=== PATIENT | male | born 1990 | race Caucasian/White ===

== ENCOUNTER 2020-07-30 06:55 | Day surgery (SDC) | payer MEDICAID, SELFPAY ==
[2020-07-30 07:06] VITALS: BP 131/89; PULSE 89; RESP 18; TEMP 36.3; O2SAT 98; BMI 24.0
--- NOTE | 2020-07-30 07:27 | HO.ANESPROP2 ---
[facility] Social History Social History (Updated 07/30/20 @ 07:30 by Josh Corbett) Alcohol intake: former Smoking Status: Never smoker Use of substances other than those prescribed or required for medical reasons: No Substance Use Type: Marijuana Substance Use Type Other:: Typically every other night Advance Directives: No Meds Allergies Allergy/AdvReac Type Severity Reaction Status Date / Time tree and shrub pollen [TREES] Allergy Unknown RASH FROM Verified 07/30/20 06:46 PINE TREES metoclopramide [Reglan] AdvReac Unknown Anxiety Verified 04/25/20 00:00 From REGLAN Allergy Intermediate DYSPHORIA Uncoded 05/30/20 16:02 SEAFOOD Allergy Unknown VOMITING Uncoded 05/30/20 16:02 Home Medications Medication Instructions Recorded Confirmed Type Carafate 07/30/20 History ondansetron HCl [Zofran] 07/30/20 History sertraline 100 mg PO DAILY 07/30/20 07/30/20 History Exam Exam Date and Time: July 30, 2020 0727 Height,Weight and Vital Signs: Height 5 ft 9 in Weight 73.936 kg Last Vital Signs Temp 97.3 F 07/30/20 07:06 Pulse 89 07/30/20 07:06 Resp 18 07/30/20 07:06 BP 131/89 07/30/20 07:06 Pulse Ox 98 07/30/20 07:06 Airway Mallampati Class: I TM Dist: >3cm Neck ROM: Full Heart: RRR Assessment and Plan Assessment Anesthesia Assessment: Anesthesia Plan Discussed Final Anesthetic Review NPO: Yes ASA Class: II Anesthetic Plan Anesthetic Plan: MAC: Disposition: Standard PACU
[2020-07-30] MEDS: Lactated Ringers 1,000 ML 100 ML IVCONT (07:55)
--- NOTE | 2020-07-30 08:11 | MHC.SHP ---
Pre-Procedural Eval Section B Chief Complaint: Epigastric Pain Relevant Family History (Specify if Yes): No Relevant Social History: Other (specify) (THC) Medical History: No relevant PMH History of Previous Operations: No relevant previous surgery Allergies: Allergies Allergy/AdvReac Type Severity Reaction Status Date / Time tree and shrub pollen [TREES] Allergy Unknown RASH FROM Verified 07/30/20 06:46 PINE TREES metoclopramide [Reglan] AdvReac Unknown Anxiety Verified 04/25/20 00:00 From REGLAN Allergy Intermediate DYSPHORIA Uncoded 05/30/20 16:02 SEAFOOD Allergy Unknown VOMITING Uncoded 05/30/20 16:02 Review of Systems Sugical H&P ROS: Negative: Constitution, Cardiovascular, Respiratory, Neurological, Psychiatric, Hem-Onc, Allergic/Immunologic, Gastrointestinal, Genitourinary, Musculoskeletal, Integumentary, Endocrine and Eyes/Ears/Nose/Throat Exam Surgical H&P Exam: Normal: HEENT, Normal: Heart, Normal: Lungs, Normal: Extremities, Normal: Abdomen, Normal: Skin and Normal: Neurological Plan Diagnosis/Plan: Unchanged Patient has been examined and remains a candidate for the planned procedure
--- NOTE | 2020-07-30 08:32 | PM.OP ---
Brief Operative Note Date of Service: 07/30/20 Post-op diagnosis: same Procedure: see op note Surgeon: April Baca MD Anesthesia: MAC Estimated blood loss (mL): 0 Condition: stable Disposition: PACU
--- NOTE | 2020-07-30 08:32 | W.PM.OPN ---
Operative Note Operative Note Date of Service: 07/30/20 Narrative: Procedure Description: EGD FLEXIBLE TRANSORAL UPPER GASTROINTESTINAL ENDOSCOPY UPPER ENDOSCOPY Consent: Indications for the procedure and potential complications of bleeding, perforation, reaction to medications and missed diagnosis were discussed with the patient and informed consent was obtained. Instrument: Olympus GIF H 190 J mid size upper endoscope Monitoring: Vital signs and clinical assessment, continuous EKG monitoring, Pulse oximetry, Carbon Dioxide monitoring and blood pressure monitoring were done throughout the procedure. Procedure: The patient was placed in the left lateral decubitis position and pre-procedure medications were administered and a bite block was placed. The endoscope was inserted into the mouth and advanced under direct vision to the third part of duodenum. A careful inspection was made as the upper endoscope was withdrawn including a retroflexed examination of the proximal stomach; Findings and interventions are described below. 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 Esophageal inlet patch noted in proximal esophagus Stomach: Patchy gastric erythema. Biopsies were obtained. Grade 2 flap valve on retroflexed examination of the cardia. Duodenum: Normal bulb and descending duodenum, bx taken Intervention: Biopsies as noted above Impression/Findings: gastritis esophageal inlet patch PLAN: await bx if neg then consider further w/u for symptoms, did describe early satiety, can consider GES, CT enterogram, or colonoscopy as he also endorses altered bowel habits.
[2020-07-30 08:38] VITALS: BP 107/56; PULSE 79; RESP 16; TEMP 36.6; O2SAT 97
[2020-07-30 08:53] VITALS: BP 113/63; PULSE 74; RESP 16; TEMP 36.6; O2SAT 98
--- NOTE | 2020-07-30 09:23 | HO.POSTANES ---
Post Anesthesia Evaluation Post Anesthesia Evaluation Vital Signs: Vital Signs Temp Pulse Resp BP Pulse Ox 07/30/20 08:53 97.8 F 74 16 113/63 98 07/30/20 08:38 97.8 F 79 16 107/56 L 97 07/30/20 07:06 97.3 F 89 18 131/89 98 Anesthesia: Monitored Mental Status: Awake Nausea/Vomiting: None Hydration: Adequate Anesthesia-Related Issues: No Anes. Related Issues
== END 2020-07-30 09:15 | disposition home or self-care (01) ==
PROVIDERS: PCP Internal Medicine; Visit Provider Internal Medicine Gastroenterology
PROC: 0DJ08ZZ Inspection of Upper Intestinal Tract, Via Natural or Artificial Opening Endoscopic (ICD-10-PCS; CPT 43235; principal; 2020-07-30 07:50)
DX: K29.50 Unspecified chronic gastritis without bleeding (principal); Q39.8 Other congenital malformations of esophagus; K44.9 Diaphragmatic hernia without obstruction or gangrene; Z80.0 Family history of malignant neoplasm of digestive organs; Z88.8 Allergy status to other drugs, medicaments and biological substances; Z79.899 Other long term (current) drug therapy
CPT/HCPCS: 43239; 88305; 88342

== ENCOUNTER → 2020-08-20 13:19 | Outpatient (BNVA) | payer MEDICAID, SELFPAY | PROVIDERS: PCP Internal Medicine; Referring Provider Internal Medicine; Visit Provider Nurse Practitioner | DX: Z76.89 Persons encountering health services in other specified circumstances (principal) ==

== ENCOUNTER 2020-08-27 10:02 | Outpatient (REF) | payer MEDICAID, SELFPAY | END 2020-08-27 10:03 | disposition home or self-care (01) | LOC: HO.LAB 10:02 | PROVIDERS: Visit Provider Internal Medicine | DX: Z20.828 Contact with and (suspected) exposure to other viral communicable diseases (principal) | CPT/HCPCS: C9803; U0003 ==

== ENCOUNTER → 2020-08-29 09:06 | Outpatient (REF) | payer MEDICAID, SELFPAY ==
--- NOTE | 2020-08-29 09:11 | NM_ITS ---
EXAMINATION: BILIARY TRACT IMAGING STUDY WITH CCK CLINICAL INFORMATION: Epigastric pain.. COMPARISON: No previous biliary scan is available for comparison. The diagnostic CT scan of the abdomen and pelvis, dated 05/14/2020, is available for comparison.. TECHNIQUE: Serial gamma scintillation camera images were obtained over the abdomen for a total observation period of 91 minutes following the intravenous administration of 5 mCi Tc-99m Mebrofenin. FINDINGS: There is good concentration of activity in the liver by 5 minutes post injection. Biliary activity is visualized by 7 minutes. The gallbladder is well visualized by 10 minutes. Small bowel is well visualized by 25 minutes. At 60 minutes post radiopharmaceutical injection, a 30-minute infusion of 1.5 micrograms Sincalide was then begun and an additional 40 minutes of images were obtained. There is good emptying of the gallbladder. By the end of the study there is good clearance of activity from the liver and visualization of diffuse small bowel activity. The calculated gallbladder ejection fraction is 90% (normal gallbladder ejection fraction is greater than 35%). NM/NM hepatobiliary w pharm IMPRESSION: Visualization of the gallbladder is evidence of a patent cystic duct and strong evidence against the diagnosis of acute cholecystitis. The common bile duct is patent. Gallbladder emptying and ejection fraction are normal. Liver function appears normal.
== END ==
LOC: HO.NUCMED 09:06
PROVIDERS: Visit Provider Nurse Practitioner
DX: R10.13 Epigastric pain (principal); R11.2 Nausea with vomiting, unspecified
CPT/HCPCS: 78227; A9537; J2805

== ENCOUNTER → 2020-10-01 15:14 | Outpatient (BNVA) | payer MEDICAID, SELFPAY | PROVIDERS: PCP Internal Medicine; Visit Provider Nurse Practitioner ==

== ENCOUNTER 2020-11-01 16:39 | Outpatient (REF) | payer MEDICAID, SELFPAY ==
[2020-11-01 17:47] LABS: Alanine Aminotransferase 48 U/L (0-40); Albumin Level 4.8 g/dL (3.5-5.0); Alkaline Phosphatase 59 U/L (39-117); Aspartate Amino Transferase 31 U/L (5-37); Bilirubin Direct 0.2 mg/dL (0.0-0.5); Bilirubin Total 0.6 mg/dL (0.0-1.0)
[2020-11-05 13:08] LABS: Mitochondrial Antibodies NEGATIVE (NEGATIVE)
[2020-11-06 12:51] LABS: Smooth Muscle Antibody <20 U (<20)
== END 2020-11-01 16:40 | disposition home or self-care (01) ==
LOC: HO.LAB 16:39
PROVIDERS: Visit Provider Nurse Practitioner
DX: R79.89 Other specified abnormal findings of blood chemistry (principal); R10.13 Epigastric pain; R11.2 Nausea with vomiting, unspecified
CPT/HCPCS: 36415; 80076; 86255; 86256

== ENCOUNTER → 2020-11-20 15:52 | Outpatient (BNVA) | payer MEDICAID, SELFPAY | PROVIDERS: PCP Internal Medicine; Visit Provider Nurse Practitioner | DX: R19.7 Diarrhea, unspecified (principal); R79.89 Other specified abnormal findings of blood chemistry; K29.30 Chronic superficial gastritis without bleeding; R63.4 Abnormal weight loss; R11.2 Nausea with vomiting, unspecified; R10.13 Epigastric pain; K21.9 Gastro-esophageal reflux disease without esophagitis; Z79.899 Other long term (current) drug therapy | CPT/HCPCS: 99212; Q3014 ==

== ENCOUNTER → 2021-01-01 13:57 | Outpatient (BNVA) | payer MEDICAID, SELFPAY | PROVIDERS: PCP Internal Medicine; Visit Provider Nurse Practitioner ==

== ENCOUNTER 2021-12-06 12:02 | Emergency (ER) | payer MEDICAID, SELFPAY ==
--- NOTE | 2021-12-06 12:14 | ED.URI ---
HPI - URI/Sore Throat General Chief Complaint: Upper Respiratory Symptoms Stated Complaint: Strep throat Time Seen by Provider: 12/06/21 12:14 Source: patient Mode of arrival: ambulatory Limitations: no limitations History of Present Illness HPI Narrative: 31-year-old male presents to the ER with 6 days of URI symptoms. He states it started with sore throat, subjective fever and chills along with a dry cough, sweats and headache. He also has had body aches and just generally not felt well. He states the last 2 nights he has had episodes of vomiting. His labs episode of vomiting was at 02:00 today. He has no abdominal pain. And states he actually felt better when he got out of bed this morning. He went to call out of work and stated he needs to be seen and have a doctor's note to be excused from work. He works in a senior living and recently had negative PCR test for COVID and flu. He thinks he may have strep throat. He has been eating soup and T with no difficulty but reports pain with swallowing. He has no known sick contacts. No shortness of breath or difficulty breathing. MD elicited complaint: fever, cough and sore throat Onset (ago): day(s) (6) Consistency: constant Severity: moderate Description of mucous: clear Able to tolerate fluids by mouth: Yes Exacerbating factors: swallowing Relieving factors: OTC cold medicine Associated symptoms: fever, chills, voice changes, myalgias, diaphoresis, headache, nasal congestion, sore throat, cough, nausea and vomiting Treatments prior to arrival: none Related Data Home Medications Medication Instructions Recorded Confirmed sertraline 100 mg tablet 100 mg PO DAILY 07/30/20 07/30/20 dextroamphetamine-amphetamine ER 20 mg PO DAILY 10/01/20 20 mg 24hr capsule,extend release (Adderall XR) lithium carbonate 600 mg capsule 600 mg PO DAILY cap 01/01/21 lithium carbonate 600 mg capsule 900 mg PO BEDTIME cap 01/01/21 risperidone 1 mg tablet 1 mg PO DAILY 01/01/21 risperidone 3 mg tablet 3 mg PO BEDTIME 01/01/21 Previous Rx's Medication Instructions Recorded famotidine 40 mg tablet (Pepcid) 40 mg PO DAILY 30 Days #30 tab 11/20/20 ondansetron HCl 4 mg tablet 4 mg PO BID 30 Days #60 tab 11/20/20 (Zofran) dicyclomine 20 mg tablet 20 mg PO QID #120 tab 11/28/20 Allergies Allergy/AdvReac Type Severity Reaction Status Date / Time tree and shrub pollen [TREES] Allergy Unknown RASH FROM Verified 11/20/20 15:53 PINE TREES metoclopramide [Reglan] AdvReac Unknown Anxiety Verified 11/20/20 15:53 SEAFOOD Allergy Unknown VOMITING Uncoded 10/01/20 15:14 Review of Systems Review of Systems: Constitutional: + Fever, + Chills ENT/Mouth: + sore throat, No Rhinorrhea, + Swallowing Difficulty Eyes: No Eye Pain, No Swelling, No Redness Cardiovascular: No Chest Pain, No SOB, No Orthopnea, No Edema Respiratory: + Cough, No Sputum, No Wheezing, No dyspnea Gastrointestinal: + Nausea, + Vomiting, No Diarrhea, NO abdominal Pain Genitourinary: No Dysuria, No Urinary Frequency, No Hematuria Musculoskeletal: No joint pain, + Myalgias Skin: No Skin Lesions, No rash Neuro: + Weakness, No Numbness, No Dizziness, + Headache Psych: No Anxiety/Panic, No Depression Heme/Lymph: No Bruising, No Lymphadenopathy Endocrine: No Polyuria, No Polydipsia PMFSH Past Medical History Medical History (Updated 12/06/21 @ 13:38 by LIMA Sellers) Celiac disease Surgical History History of esophagogastroduodenoscopy (EGD) Family History Family History (Updated 11/20/20 @ 16:04 by JOSSELIN Chowdary) Father Family history of hypertension Heart problem Mother Family history- stomach cancer Family history of lung cancer Maternal Uncle No problems noted. Paternal Grandfather Heart problem Social History Social History (Updated 11/20/20 @ 16:08 by JOSSELIN Chowdary) Household Members: Significant Other and Other Alcohol intake: former Year quit: 2 Substance Use Type: Marijuana Advance Directives: No Advance Directives Information Provided: No Current occupational status: unemployed Physical Exam Vital Signs: Vital Signs: Last Vital Signs Temp 96.7 F L 12/06/21 12:34 Pulse 85 12/06/21 12:34 Resp 16 12/06/21 12:34 BP 142/73 H 12/06/21 12:34 Pulse Ox 97 12/06/21 12:34 BMI result Body Mass Index 25.4 Appearance: Alert. Oriented X3. No acute distress. Eyes: Pupils equal, round and reactive to light. ENT: Pharynx With moist mucous membranes, mild generalized posterior erythema with normal appearing tonsils, no exudates. Uvula midline. Neck: Normal inspection. Neck supple. No lymphadenopathy. CVS: Normal heart rate and rhythm. Pulses normal. Respiratory: No respiratory distress. Breath sounds normal. Abdomen: Soft and nontender. +BS x4 Skin: Skin warm and dry. Normal skin color. Normal skin turgor. No rashes. Extremities: No lower extremity edema. Neuro: Oriented X 3. No motor deficit. No sensory deficit. Course Course Course Narrative: 31-year-old male presents to the ER with 6 days of sore throat, subjective fever, chills, As well as a few episodes of vomiting in the last 48 hours. On arrival his vital signs are normal. He is tolerating p.o. and last episode of vomiting was almost 12 hours ago. He has no abdominal tenderness. Will check flu, COVID, strep throat. Most likely viral etiology. Reevaluation(s) Reevaluation #1: Patient is negative for influenza, COVID-19 as well as strep throat. Most likely another viral illness. Will give work note per request. He is stable for discharge home with supportive care. MDM - URI/Sore Throat Lab Data Labs: Lab Results 12/06/21 12/06/21 12/06/21 Range/Units 12:50 12:51 12:52 COVID-19 ([facility]) Negative (Negative) COVID-19 Clin Com See Note Influenza Type A ([facility]) Negative (Negative) Influenza Type B ([facility]) Negative (Negative) Influenza A & B Note See Note S. pyogenes GrpA [place] Negative (Negative) Critical Care Time Critical Care Time Critical Care Time: No Discharge Plan Discharge Clinical Impression: Viral infection Patient Disposition: Home, Self-Care Instructions: Viral Syndrome (ED) Additional Instructions: You were negative for Flu, COVID and Strep throat. Your symptoms are most likely due to another virus. Treatment is rest and supportive care. Take [id number] cold and flu medications as needed for symptoms. Rest and drink plenty of fluids. Follow up with your doctor as needed. If you develop new or worsening symptoms call 911 or come back to the ER for further evaluation. Prescriptions: No Action dicyclomine 20 mg tablet 20 mg PO QID Qty: 120 1RF sertraline 100 mg Tablet 100 mg PO DAILY 0RF dextroamphetamine-amphetamine [Adderall XR] 20 mg capsule,extended release 24hr 20 mg PO DAILY 0RF ondansetron HCl [Zofran] 4 mg tablet 4 mg PO BID 30 Days Qty: 60 0RF Rx Instructions: This is a short supply as a courtesy, in the future it should be managed by Dr. Joaquin Pedro. famotidine [Pepcid] 40 mg tablet 40 mg PO DAILY 30 Days Qty: 30 6RF lithium carbonate 600 mg capsule 600 mg PO DAILY 0RF lithium carbonate 600 mg capsule 900 mg PO BEDTIME 0RF risperidone 1 mg tablet 1 mg PO DAILY 0RF risperidone 3 mg tablet 3 mg PO BEDTIME 0RF Referrals: Joaquin Pedro MD [Primary Care Provider] - 2 days Stand Alone Forms: Work/School Release Interventions: ED Discharge Assessment Last Done: 12/06/21 13:48 Discharge Date/Time: 12/06/21 13:49
[2021-12-06 12:34] VITALS: BP 142/73; PULSE 85; RESP 16; TEMP 35.9; O2SAT 97; BMI 25.4
[2021-12-06 13:31] LABS: IDNOW Serial# 08D9AD1C; Strep A Nucleic Acid Negative (Negative)
[2021-12-06 13:31] LABS: Influenza A Negative (Negative); Influenza B2 Negative (Negative)
[2021-12-06 13:31] LABS: COVID-19 Test Negative (Negative); IDNOW Serial# 16C4AD1C
== END 2021-12-06 13:49 | disposition home or self-care (01) ==
PROVIDERS: Physician Assistant; Emergency Provider Emergency Medicine; PCP Internal Medicine
DX: B34.9 Viral infection, unspecified (principal); Z20.822 Contact with and (suspected) exposure to COVID-19; J02.9 Acute pharyngitis, unspecified
CPT/HCPCS: 87502; 87635; 87651; 99283

== ENCOUNTER 2021-12-09 15:43 | Emergency (ER) | payer MEDICAID, SELFPAY ==
[2021-12-09 16:29] VITALS: BP 143/77; PULSE 81; RESP 20; TEMP 37; O2SAT 98; BMI 25.4
--- NOTE | 2021-12-09 16:30 | ED.GENADULT ---
HPI - General Adult General Chief complaint: Recheck/Abnormal Lab/Rx <LIMA Stevens - Last Filed: 12/10/21 08:13> Stated complaint: potassium levels high <LIMA Stevens - Last Filed: 12/10/21 08:13> Time Seen by Provider: 12/09/21 16:29 <LIMA Stevens - Last Filed: 12/10/21 08:13> History of Present Illness HPI narrative: Patient presents today asymptomatic but told by his doctor to go to the ER because routine lab testing from psychiatrist had showed an elevated potassium, there is no other issue no other complaint patient feels fine and has no history of any problem with his kidneys or any electrolyte abnormalities <LIMA Israel - Last Filed: 12/09/21 19:06> Related Data Home medications: Home Medications Medication Instructions Recorded Confirmed sertraline 100 mg tablet 100 mg PO DAILY 07/30/20 07/30/20 dextroamphetamine-amphetamine ER 20 mg PO DAILY 10/01/20 20 mg 24hr capsule,extend release (Adderall XR) lithium carbonate 600 mg capsule 600 mg PO DAILY cap 01/01/21 lithium carbonate 600 mg capsule 900 mg PO BEDTIME cap 01/01/21 risperidone 1 mg tablet 1 mg PO DAILY 01/01/21 risperidone 3 mg tablet 3 mg PO BEDTIME 01/01/21 Previous Rx's Medication Instructions Recorded famotidine 40 mg tablet (Pepcid) 40 mg PO DAILY 30 Days #30 tab 11/20/20 ondansetron HCl 4 mg tablet 4 mg PO BID 30 Days #60 tab 11/20/20 (Zofran) dicyclomine 20 mg tablet 20 mg PO QID #120 tab 11/28/20 <LIMA Stevens - Last Filed: 12/10/21 08:13> Allergies/adverse reactions: Allergies Allergy/AdvReac Type Severity Reaction Status Date / Time tree and shrub pollen [TREES] Allergy Unknown RASH FROM Verified 12/09/21 17:26 PINE TREES metoclopramide [Reglan] AdvReac Unknown Anxiety Verified 12/09/21 17:26 SEAFOOD Allergy Unknown VOMITING Uncoded 10/01/20 15:14 <LIMA Stevens - Last Filed: 12/10/21 08:13> Review of Systems Review of Systems: No dizziness no weakness no fainting no feeling faint no headache no neck pain no chest pain no palpitations no shortness of breath no abdominal pain no nausea or vomiting no muscle aches no leg swelling <LIMA Israel - Last Filed: 12/09/21 19:06> Yes all other systems are reviewed and are negative <LIMA Israel - Last Filed: 12/09/21 19:06> [facility] Past Medical History Source: nursing notes reviewed <LIMA Israel - Last Filed: 12/09/21 19:06> Medical History: Medical History (Updated 12/10/21 @ 00:00 by Trisha Perez) Celiac disease <LIMA Stevens - Last Filed: 12/10/21 08:13> Surgical History: Surgical History History of esophagogastroduodenoscopy (EGD) <LIMA Stevens Last Filed: 12/10/21 08:13> Family History Family History: Family History (Updated 11/20/20 @ 16:04 by JOSSELIN Chowdary) Father Family history of hypertension Heart problem Mother Family history- stomach cancer Family history of lung cancer Maternal Uncle No problems noted. Paternal Grandfather Heart problem <LIMA Stevens - Last Filed: 12/10/21 08:13> Social History Social History: Social History (Updated 11/20/20 @ 16:08 by JOSSELIN Chowdary) Household Members: Significant Other and Other Alcohol intake: former Year quit: 2 Substance Use Type: Marijuana Advance Directives: No Advance Directives Information Provided: No Current occupational status: unemployed <LIMA Stevens - Last Filed: 12/10/21 08:13> Physical Exam ED Vital Signs: Vital Signs - 24 hr 12/09/21 16:29 Temperature 98.6 F Pulse Rate 81 Respiratory Rate 20 Blood Pressure 143/77 H Pulse Oximetry 98 BMI result Body Mass Index 25.4 <LIMA Stevens - Last Filed: 12/10/21 08:13> Vital Signs - 24 hr 12/09/21 16:29 Temperature 98.6 F Pulse Rate 81 Respiratory Rate 20 Blood Pressure 143/77 H Pulse Oximetry 98 BMI result Body Mass Index 25.4 <LIMA Israel - Last Filed: 12/09/21 19:06> General appearance no acute distress Head is normocephalic atraumatic The pharynx is clear with moist mucous membranes no redness swelling or exudate Neck is supple Chest is clear to auscultation bilateral full symmetric breath sounds Heart no murmurs Abdomen soft nontender Extremities no edema no leg swelling no calf tenderness Skin no rash <LIMA Israel - Last Filed: 12/09/21 19:06> Course Course Course Narrative: Rapid medical screening. Patient sent to the ED for elevated potassium. Patient was informed by his PCP to come to the ED for repeat potassium. provider over the states potasiium level of 5.9 and normal kidney function. Repeat labs ordered. EKG ordered. <LIMA Stevens - Last Filed: 12/10/21 08:13> Rapid medical screening. Patient sent to the ED for elevated potassium. Patient was informed by his PCP to come to the ED for repeat potassium. provider over the states potasiium level of 5.9 and normal kidney function. Repeat labs ordered. EKG ordered. BUN and creatinine were normal, potassium was normal at 4.7, no other significant lab abnormality EKG showed sinus bradycardia with a rate of 58, normal intervals, normal QT, no acute ischemic abnormalities, no acute ST changes Patient with normal potassium on recheck with normal renal function and no complaint and is discharged feeling in normal state of health <LIMA Israel - Last Filed: 12/09/21 19:06> Medical Decision Making Lab Data Result diagrams: : 12/09/21 16:45 12/09/21 16:45 <LIMA Stevens - Last Filed: 12/10/21 08:13> Labs: Lab Results 12/09/21 12/09/21 Range/Units 16:45 16:45 WBC 6.4 (4.8-10.8) X10*3/uL RBC 4.37 L (4.60-5.80) X10*6/uL Hgb 13.4 L (14.0-18.0) g/dl Hct 40.6 L (42.0-52.0) % MCV 92.9 (80.0-98.0) fL MCH 30.7 (27.0-33.0) pg MCHC 33.0 (31.0-36.0) g/dl RDW 12.1 (11.0-16.0) % Plt Count 485 H (160-400) X10*3/uL MPV 8.6 L (9.4-12.4) fL Immature Gran % (Auto) 0.3 (0.0-0.4) % Neut % (Auto) 45.8 (45-73) % Lymph % (Auto) 46.5 H (20-40) % [place] % (Auto) 6.4 (2-11) % Eos % (Auto) 0.8 (0-4) % Baso % (Auto) 0.2 (0-2) % Lymph # (Auto) 3.0 (1.2-4.9) X10*3/uL [place] # (Auto) 0.4 (0.1-1.2) X10*3/uL Eos # (Auto) 0.1 (0.0-0.4) X10*3/uL Baso # (Auto) 0.0 (0.0-0.2) X10*3/uL Abs Immat Gran (auto) 0.02 (0.00-0.03) X10*3/uL Absolute Neuts (auto) 3.0 (2.0-8.3) x10*3/uL Absolute Nucleated RBC 0.000 (0.0-0.012) X10*3/uL Nucleated RBC % (auto) 0.0 (0.0-0.2) /100WBC Sodium 138 (135-145) mmol/L Potassium 4.7 (3.3-5.1) mmol/L Chloride 102 (96-108) mmol/L Carbon Dioxide 31 H (22-29) mmol/L Anion Gap 10 L (12-20) BUN 15 (9-16) mg/dL Creatinine 0.85 (0.5-1.4) mg/dL Estim Creat Clear Calc 125.9 Estimated GFR > 60 Random Glucose 105 (60-115) mg/dL Calcium 9.8 (8.4-10.2) mg/dL Total Bilirubin 0.2 (0.0-1.0) mg/dL AST 22 (5-37) U/L ALT 37 (0-40) U/L Alkaline Phosphatase 52 (39-117) U/L Total Protein 7.5 (6.5-8.0) g/dL Albumin 4.5 (3.5-5.0) g/dL <LIMA Stevens - Last Filed: 12/10/21 08:13> Lab Results 12/09/21 12/09/21 Range/Units 16:45 16:45 WBC 6.4 (4.8-10.8) X10*3/uL RBC 4.37 L (4.60-5.80) X10*6/uL Hgb 13.4 L (14.0-18.0) g/dl Hct 40.6 L (42.0-52.0) % MCV 92.9 (80.0-98.0) fL MCH 30.7 (27.0-33.0) pg MCHC 33.0 (31.0-36.0) g/dl RDW 12.1 (11.0-16.0) % Plt Count 485 H (160-400) X10*3/uL MPV 8.6 L (9.4-12.4) fL Immature Gran % (Auto) 0.3 (0.0-0.4) % Neut % (Auto) 45.8 (45-73) % Lymph % (Auto) 46.5 H (20-40) % [place] % (Auto) 6.4 (2-11) % Eos % (Auto) 0.8 (0-4) % Baso % (Auto) 0.2 (0-2) % Lymph # (Auto) 3.0 (1.2-4.9) X10*3/uL [place] # (Auto) 0.4 (0.1-1.2) X10*3/uL Eos # (Auto) 0.1 (0.0-0.4) X10*3/uL Baso # (Auto) 0.0 (0.0-0.2) X10*3/uL Abs Immat Gran (auto) 0.02 (0.00-0.03) X10*3/uL Absolute Neuts (auto) 3.0 (2.0-8.3) x10*3/uL Absolute Nucleated RBC 0.000 (0.0-0.012) X10*3/uL Nucleated RBC % (auto) 0.0 (0.0-0.2) /100WBC Sodium 138 (135-145) mmol/L Potassium 4.7 (3.3-5.1) mmol/L Chloride 102 (96-108) mmol/L Carbon Dioxide 31 H (22-29) mmol/L Anion Gap 10 L (12-20) BUN 15 (9-16) mg/dL Creatinine 0.85 (0.5-1.4) mg/dL Estim Creat Clear Calc 125.9 Estimated GFR > 60 Random Glucose 105 (60-115) mg/dL Calcium 9.8 (8.4-10.2) mg/dL Total Bilirubin 0.2 (0.0-1.0) mg/dL AST 22 (5-37) U/L ALT 37 (0-40) U/L Alkaline Phosphatase 52 (39-117) U/L Total Protein 7.5 (6.5-8.0) g/dL Albumin 4.5 (3.5-5.0) g/dL <LIMA Israel - Last Filed: 12/09/21 19:06> Discharge Plan Discharge Clinical Impression: Normal exam <LIMA Stevens - Last Filed: 12/10/21 08:13> Patient Disposition: Home, Self-Care <LIMA Stevens - Last Filed: 12/10/21 08:13> Additional Instructions: Your repeat potassium was normal, your kidney function was normal, your EKG was normal, physical exam was normal An elevated potassium is very common due to clotting of blood in the tube but the potassium in her body is normal No concerns follow routinely with her doctor and return any time for any worse condition or concerns <LIMA Stevens - Last Filed: 12/10/21 08:13> Prescriptions: No Action dicyclomine 20 mg tablet 20 mg PO QID Qty: 120 1RF sertraline 100 mg Tablet 100 mg PO DAILY 0RF dextroamphetamine-amphetamine [Adderall XR] 20 mg capsule,extended release 24hr 20 mg PO DAILY 0RF ondansetron HCl [Zofran] 4 mg tablet 4 mg PO BID 30 Days Qty: 60 0RF Rx Instructions: This is a short supply as a courtesy, in the future it should be managed by Dr. Joaquin Pedro. famotidine [Pepcid] 40 mg tablet 40 mg PO DAILY 30 Days Qty: 30 6RF lithium carbonate 600 mg capsule 600 mg PO DAILY 0RF lithium carbonate 600 mg capsule 900 mg PO BEDTIME 0RF risperidone 1 mg tablet 1 mg PO DAILY 0RF risperidone 3 mg tablet 3 mg PO BEDTIME 0RF <LIMA Stevens - Last Filed: 12/10/21 08:13> Interventions: ED Discharge Assessment Last Done: 12/09/21 17:58 <LIMA Stevens - Last Filed: 12/10/21 08:13> Discharge Date/Time: 12/09/21 17:59 <LIMA Stevens - Last Filed: 12/10/21 08:13>
--- NOTE | 2021-12-09 16:34 | ECG_ITS ---
Test Reason : hyperkalemia Blood Pressure : / mmHG Vent. Rate : 058 BPM Atrial Rate : 058 BPM P-R Int : 142 ms QRS Dur : 094 ms QT Int : 414 ms P-R-T Axes : 049 076 036 degrees QTc Int : 406 ms Sinus bradycardia Otherwise normal ECG No previous ECGs available Referred By: Mason Bailey Electronically Signed By:MORAIMA ZAVALA
[2021-12-09 16:48] LABS: MANUAL DIFF FLAG NO
[2021-12-09 16:51] LABS: Basophils Percent Auto 0.2 % (0-2); Eosinophils Absolute Auto 0.1 X10*3/uL (0.0-0.4); Eosinophils Percent Auto 0.8 % (0-4); Hematocrit 40.6 % (42.0-52.0); Hemoglobin 13.4 g/dl (14.0-18.0); Imm Gran Abs Auto 0.02 X10*3/uL (0.00-0.03); Imm Gran Pct Auto 0.3 % (0.0-0.4); Lymphocytes Percent Auto 46.5 % (20-40); Mean Corpuscular Hemoglobin 30.7 pg (27.0-33.0); Mean Corpuscular Volume 92.9 fL (80.0-98.0); Mean Platelet Volume 8.6 fL (9.4-12.4); Monocytes Absolute Auto 0.4 X10*3/uL (0.1-1.2); Monocytes Percent Auto 6.4 % (2-11); Neutrophils Percent Auto 45.8 % (45-73); Platelet Count 485 X10*3/uL (160-400); Red Blood Count 4.37 X10*6/uL (4.60-5.80); Red Cell Distribution Width 12.1 % (11.0-16.0); White Blood Count 6.4 X10*3/uL (4.8-10.8)
[2021-12-09 17:24] LABS: Alanine Aminotransferase 37 U/L (0-40); Albumin Level 4.5 g/dL (3.5-5.0); Alkaline Phosphatase 52 U/L (39-117); Anion Gap 10 (12-20); Bilirubin Total 0.2 mg/dL (0.0-1.0); Blood Urea Nitrogen 15 mg/dL (9-16); Calcium 9.8 mg/dL (8.4-10.2); Carbon Dioxide 31 mmol/L (22-29); Chloride 102 mmol/L (96-108); Creatinine Clr Calc Pharmacy 125.9; Estimated Glomerular Filt Rate > 60; Glucose Random 105 mg/dL (60-115); Potassium 4.7 mmol/L (3.3-5.1); Sodium 138 mmol/L (135-145); Total Protein 7.5 g/dL (6.5-8.0)
[2021-12-09 17:36] LABS: Aspartate Amino Transferase 22 U/L (5-37)
== END 2021-12-09 17:59 | disposition home or self-care (01) ==
PROVIDERS: Physician Assistant; Emergency Provider Emergency Medicine; PCP Internal Medicine
DX: E87.5 Hyperkalemia (principal); R07.9 Chest pain, unspecified; F12.90 Cannabis use, unspecified, uncomplicated; Z79.899 Other long term (current) drug therapy; Z87.891 Personal history of nicotine dependence
CPT/HCPCS: 36415; 80053; 85025; 93005; 99283

== ENCOUNTER 2024-10-01 15:18 | Emergency (ER) | payer OTHER, SELFPAY ==
[2024-10-01 15:21] VITALS: BP 160/112; PULSE 62; RESP 18; TEMP 37; O2SAT 99; BMI 26.9
--- NOTE | 2024-10-01 15:23 | ED_ITS ---
HPI - Psych General Chief Complaint: Psychiatric Symptoms Stated Complaint: Crisis Time Seen by Provider: 10/01/24 15:58 Source: patient Mode of arrival: ambulatory Limitations: no limitations History of Present Illness ED Provider: Maria Dolores Jones PA-C HPI Narrative: Patient is a 33 year old assigned male at with a history of GERD, bipolar disorder on lithium, and substance abuse presenting to the emergency department today with suicidal ideation, difficulty sleeping, and requesting to restart suboxone. Patient states that he has been using more fentanyl lately and that has been messing with his sleep and making him depressed / suicidal. Patient denies any dizziness, lightheadedness, abdominal pain, nausea, vomiting, fever, chills, blurry vision, double vision, loss of vision, chest pain, difficulty breathing, shortness of breath, back pain, night sweats, pain with urination, increased urinary frequency, increased urinary urgency, blood in his urine or stool, syncope or a near syncopal episode, recent trauma or falls, bowel incontinence, bladder incontinence, or any other complaints at this time. Treatments prior to arrival: none Related Data Home Medications ?Medication ?Instructions ?Recorded ?Confirmed sertraline 100 mg tablet 100 mg PO DAILY 07/30/20 07/30/20 dextroamphetamine-amphetamine ER 20 mg PO DAILY 10/01/20 20 mg 24hr capsule,extend release (Adderall XR) lithium carbonate 600 mg capsule 600 mg PO DAILY 01/01/21 lithium carbonate 600 mg capsule 900 mg PO BEDTIME 01/01/21 risperidone 1 mg tablet 1 mg PO DAILY 01/01/21 risperidone 3 mg tablet 3 mg PO BEDTIME 01/01/21 Previous Rx's ?Medication ?Instructions ?Recorded famotidine 40 mg tablet (Pepcid) 40 mg PO DAILY 30 days #30 tabs 11/20/20 ondansetron HCl 4 mg tablet 4 mg PO BID 30 days #60 tabs 11/20/20 (Zofran) dicyclomine 20 mg tablet 20 mg PO QID #120 tabs 11/28/20 Allergies Allergy/AdvReac Type Severity Reaction Status Date / Time tree and shrub pollen [TREES] Allergy Unknown RASH FROM Verified 10/01/24 15:25 PINE TREES metoclopramide [Reglan] AdvReac Unknown Anxiety Verified 10/01/24 15:25 SEAFOOD Allergy Unknown VOMITING Uncoded 10/01/20 15:14 Review of Systems 2 Constitutional: Constitutional: Reports no additional constitutional complaints, Denies chills, Denies fever(s) and Denies night sweats Eyes: Eyes: Reports no additional eye complaints, Denies blurry vision, Denies change in vision, Denies diplopia, Denies eye discharge, Denies loss of vision and Denies eye pain ENT: Denies dizziness Cardiovascular: Cardiovascular: Reports no additional cardiovascular complaints, Denies chest pain, Denies lightheadedness, Denies Loss of Consciousness and Denies dyspnea Respiratory: Respiratory: Reports no additional respiratory complaints and Denies dyspnea Gastrointestinal: Gastrointestinal: Reports no additional gastrointestinal complaints, Denies abdominal pain, Denies melena, Denies hematochezia, Denies change in bowel habits and Denies change in stool character Genitourinary: Genitourinary: Reports no additional male genitourinary complaints, Denies hematuria, Denies oliguria, Denies difficulty urinating, Denies dysuria, Denies urinary frequency, Denies urinary hesitancy, Denies urinary incontinence and Denies urinary urgency Musculoskeletal: Musculoskeletal: Reports no additional musculoskeletal complaints, Denies numbness and Denies tingling Neurologic: Denies dizziness, Denies loss of vision, Denies numbness and Denies tingling Psychiatric: Psychiatric: Reports no additional psychiatric complaints, Reports abnormal sleep pattern, Reports depression, Denies homicidal ideation and Reports suicidal ideation Endocrine: Endocrine: Reports no additional endocrine complaints Hematologic/Lymphatic: Hematologic/Lymphatic: Reports no additional hematologic/lymphatic complaints Allergic/Immunologic: Allergic/Immunologic: Reports no additional allergic/immunologic complaints [facility] Past Medical History Attestation statement: The following information was validated with the patient. Source: old records reviewed and nursing notes reviewed Medical History Celiac disease Surgical History History of esophagogastroduodenoscopy (EGD) Family History Family History Father Family history of hypertension Heart problem Mother Family history- stomach cancer Family history of lung cancer Maternal Uncle No problems noted. Paternal Grandfather Heart problem Social History Social History Household Members: Significant Other and Other Alcohol intake: former Year quit: 2 Substance Use Type: Marijuana Advance Directives: No Advance Directives Information Provided: No Do you have a plan to hurt others: No Plan Current occupational status: unemployed Physical Exam 2 Vital Signs: Vital Signs: Last Vital Signs Temp 98.6 F 10/01/24 15:21 Pulse 62 10/01/24 15:21 Resp 18 10/01/24 15:21 BP 160/112 H 10/01/24 15:21 Pulse Ox 99 10/01/24 15:21 O2 Del Method Room Air 10/01/24 15:21 BMI result Body Mass Index 26.9 Const: General: cooperative, no acute distress, alert and awake Nutritional Appearance: well nourished Orientation/consciousness: patient oriented x3 Limitations: no limitations HEENT: Head: Yes normal to inspection and Yes atraumatic Ears: hearing grossly normal bilaterally and external ears normal General nose exam: Normal external nose present, no nasal discharge noted and no epistaxis Face and sinus: Yes normal facial exam, No abrasion and No laceration Mouth: Normal oral and palatal mucosa present, no drooling and no muffled voice Eyes: General: appearance normal, both eyes and all related structures P eriorbital: periorbital findings normal Eyelids: Yes eyelids normal C onjunctivae: conjunctivae normal Pupils: Equal, round and reactive pupils present EOM: EOMs intact bilaterally Neck: Neck: Yes normal visual inspection, Yes full ROM and Yes no lymphadenopathy Chest: Chest palpation & inspection: normal inspection of the chest Resp: Effort & Inspection: normal respiratory effort and able to speak in complete sentences GI: Inspection: Yes normal to inspection Neuro: General: patient oriented x3 and moves all extremities Cranial nerves: Yes Equal, round and reactive pupils present Cognition (Neuro): n ormal cognition Extrem: General: Yes normal to inspection, Yes full ROM and Yes capillary refill normal Psych: Appearance: grossly normal Mental Status: mental status grossly normal Affect: normal affect Attitude: cooperative Thought process: N ormal thought process present Thought content: Normal thought content present Insight: Good insight present (Psych) Course Course Course Narrative: This is a Rapid Medical Examination (RME) performed by Dolly Block PA-C in triage. Full HPI, ROS, assessment and treatment plan per primary provider in the Main ED. 33 yo male hx of celiac, gerd, and bipolar disorder, here for SI w/o plan. reports etoh and substance abuse. reports insomnia x3 days. also reports subjective fever, chills and generalized muscle aches, worse in his back. taking all home medications as prescribed with the exception of olanzapine (ran out 1 week ago). he recently spoke w/ his psychiatrist who wants lithium levels checked as she thinks they may be too high. Plan: medical clearance, care team eval Medications Administered Discontinued Medications Generic Name Dose Route Start Last Admin Trade Name Elly PRN Reason Stop Dose Admin Lorazepam 2 mg 10/01/24 17:11 10/01/24 17:20 Lorazepam 1 Mg Tablet PO 10/01/24 17:12 2 mg ONCE ONE Administration Medical Decision Making Medical Decision Making [facility] Narrative: Patient is a 33 year old assigned male at with a history of GERD, bipolar disorder on lithium, and substance abuse presenting to the emergency department today with suicidal ideation, difficulty sleeping, and requesting to restart suboxone. Patient's physical exam was unremarkable. Patient's blood work was unremarkable. Patient's EKG was unremarkable. I explained my physical exam findings as well as all test results to the patient. I answered all questions asked by the patient. Patient's disposition will be determined after CARE team evaluation. Differential Diagnosis Differential Diagnoses: The differential diagnosis associated with the presentation includes SI Substance use Substance abuse Admission/Observation Consideration of admission/observation: Escalation of care including admission/observation considered Patient's disposition will be determined after CARE Team evaluation. Lab Data [facility] Lab Attestation statement: I reviewed the patient's lab results. My interpretation of these results are in the [facility] Rationale portion of this note. 10/01/24 15:54 10/01/24 15:54 Labs: Lab Results 10/01/24 10/01/24 Range/Units 15:54 17:19 WBC 6.9 (4.8-10.8) X10*3/uL RBC 4.60 (4.60-5.80) X10*6/uL Hgb 14.8 (14.0-18.0) g/dl Hct 43.4 (42.0-52.0) % MCV 94.3 (80.0-98.0) fL MCH 32.2 (27.0-33.0) pg MCHC 34.1 (31.0-36.0) g/dl RDW 12.1 (11.0-16.0) % Plt Count 460 H (160-400) X10*3/uL MPV 8.8 L (9.4-12.4) fL Immature Gran % (Auto) 0.3 (0.0-0.4) % Neut % (Auto) 72.1 (45-73) % Lymph % (Auto) 19.5 L (20-40) % Real % (Auto) 7.9 (2-11) % Eos % (Auto) 0.1 (0-4) % Baso % (Auto) 0.1 (0-2) % Lymph # (Auto) 1.4 (1.2-4.9) X10*3/uL Real # (Auto) 0.6 (0.1-1.2) X10*3/uL Eos # (Auto) 0.0 (0.0-0.4) X10*3/uL Baso # (Auto) 0.0 (0.0-0.2) X10*3/uL Abs Immat Gran (auto) 0.02 (0.00-0.03) X10*3/uL Absolute Neuts (auto) 5.0 (2.0-8.3) x10*3/uL Absolute Nucleated RBC 0.000 (0.0-0.012) X10*3/uL Nucleated RBC % (auto) 0.0 (0.0-0.2) /100WBC Sodium 136 (135-145) mmol/L Potassium 4.0 (3.3-5.1) mmol/L Chloride 102 (96-108) mmol/L Carbon Dioxide 27 (22-29) mmol/L Anion Gap 11 L (12-20) BUN 11 (9-16) mg/dL Creatinine 0.87 (0.5-1.4) mg/dL Estim Creat Clear Calc 120.7 Estimated GFR > 60 Random Glucose 100 (60-115) mg/dL Calcium 9.5 (8.4-10.2) mg/dL Magnesium 2.0 (1.6-2.6) mg/dL Total Bilirubin 0.6 (0.0-1.0) mg/dL AST 36 (5-37) U/L ALT 65 H (0-40) U/L Alkaline Phosphatase 60 (39-117) U/L Total Creatine Kinase 57 (38-174) U/L Total Protein 8.6 H (6.5-8.0) g/dL Albumin 4.9 (3.5-5.0) g/dL Lipase 15 (8-78) U/L Urine Color Yellow Urine Appearance Clear Urine pH 6.5 (5.0-9.0) Ur Specific [place] 1.010 (1.005-1.025) Urine Protein Negative (Neg-Trace) mg/dL Urine Glucose (UA) Negative (Negative) mg/dL Urine Ketones Negative (Negative) mg/dL Urine Blood Negative (Negative) Urine Nitrite Negative (Negative) Ur Leukocyte Esterase Negative (Negative) Urine Opiates Screen Not Detected (Not Detect) Ur Buprenorphine Scrn Not Detected (Not Detect) ng/mL Ur Oxycodone Screen Positive H (Not Detect) ng/mL Urine Methadone Screen Not Detected (Not Detect) ng/mL Urine Fentanyl Screen POSITIVE H (Not Detect) Acetaminophen < 3 (<30) mcg/mL Ur Barbiturates Screen Not Detected (Not Detect) Ur Phencyclidine Scrn Not Detected (Not Detect) Ur Amphetamines Screen Not Detected (Not Detect) U Benzodiazepines Scrn Not Detected (Not Detect) Waucoma 1.48 H (0.60-1.20) mmol/L Urine Cocaine Screen Not Detected (Not Detect) U Marijuana (THC) Screen Not Detected (Not Detect) Ethyl Alcohol 11 mg/dL Influenza Type A (PCR) NEGATIVE (Negative) Influenza Type B (PCR) NEGATIVE (Negative) RSV RNA Qual (PCR) NEGATIVE (Negative) SARS-CoV-2 RNA (RT-PCR) NEGATIVE (Negative) Independent Interpretation I performed an independent interpretation of an: EKG Interpretation: Vent. Rate: 56 BPM Atrial Rate: 56 BPM P-R Int: 136 ms QRS Dur: 102 ms QT Int: 420 ms P-R-T Axes: 47 71 54 degrees QTcB Int: 405 ms Sinus bradycardia When compared with ECG of 09-Dec-2021 16:32, No significant change was found DD/ [id number] Discharge Plan Discharge Clinical Impression: Suicidal ideation, Opioid use disorder Patient Disposition: Still a Patient Prescriptions: No Action dicyclomine 20 mg tablet 20 mg PO QID Qty: 120 1RF sertraline 100 mg Tablet 100 mg PO DAILY dextroamphetamine-amphetamine [Adderall XR] 20 mg capsule,extended release 24hr 20 mg PO DAILY ondansetron HCl [Zofran] 4 mg tablet 4 mg PO BID 30 Days Qty: 60 0RF Rx Instructions: This is a short supply as a courtesy, in the future it should be managed by Dr. Joaquin Pedro. famotidine [Pepcid] 40 mg tablet 40 mg PO DAILY 30 Days Qty: 30 6RF lithium carbonate 600 mg capsule 600 mg PO DAILY lithium carbonate 600 mg capsule 900 mg PO BEDTIME risperidone 1 mg tablet 1 mg PO DAILY risperidone 3 mg tablet 3 mg PO BEDTIME Interventions: [place]-Suicide Risk Severity Scale Last Done: 10/01/24 16:41 Print Language: Albanian
--- NOTE | 2024-10-01 15:24 | ECG_ITS ---
Test Reason : PSYCH Blood Pressure : */* mmHG Vent. Rate : 56 BPM Atrial Rate : 56 BPM P-R Int : 136 ms QRS Dur : 102 ms QT Int : 420 ms P-R-T Axes : 47 71 54 degrees QTcB Int : 405 ms Sinus bradycardia Otherwise normal ECG When compared with ECG of 09-Dec-2021 16:32, No significant change was found Referred By: Ela Block Electronically Signed By: SUSAN PARRA MD
[2024-10-01 16:01] LABS: MANUAL DIFF FLAG NO
[2024-10-01 16:04] LABS: Basophils Percent Auto 0.1 % (0-2); Eosinophils Percent Auto 0.1 % (0-4); Hematocrit 43.4 % (42.0-52.0); Hemoglobin 14.8 g/dl (14.0-18.0); Imm Gran Abs Auto 0.02 X10*3/uL (0.00-0.03); Imm Gran Pct Auto 0.3 % (0.0-0.4); Lymphocytes Absolute Auto 1.4 X10*3/uL (1.2-4.9); Lymphocytes Percent Auto 19.5 % (20-40); Mean Corpuscular HGB Conc 34.1 g/dl (31.0-36.0); Mean Corpuscular Hemoglobin 32.2 pg (27.0-33.0); Mean Corpuscular Volume 94.3 fL (80.0-98.0); Mean Platelet Volume 8.8 fL (9.4-12.4); Monocytes Absolute Auto 0.6 X10*3/uL (0.1-1.2); Monocytes Percent Auto 7.9 % (2-11); Neutrophils Percent Auto 72.1 % (45-73); Platelet Count 460 X10*3/uL (160-400); Red Cell Distribution Width 12.1 % (11.0-16.0); White Blood Count 6.9 X10*3/uL (4.8-10.8)
[2024-10-01 16:13] LABS: Lithium 1.48 mmol/L (0.60-1.20)
[2024-10-01 16:17] LABS: Ethanol 11 mg/dL
[2024-10-01 16:23] LABS: Acetaminophen LAB < 3 mcg/mL (<30)
[2024-10-01 16:26] LABS: Alanine Aminotransferase 65 U/L (0-40); Albumin Level 4.9 g/dL (3.5-5.0); Alkaline Phosphatase 60 U/L (39-117); Anion Gap 11 (12-20); Aspartate Amino Transferase 36 U/L (5-37); Bilirubin Total 0.6 mg/dL (0.0-1.0); Blood Urea Nitrogen 11 mg/dL (9-16); Calcium 9.5 mg/dL (8.4-10.2); Carbon Dioxide 27 mmol/L (22-29); Chloride 102 mmol/L (96-108); Creatinine Clr Calc Pharmacy 120.7; Estimated Glomerular Filt Rate > 60; Glucose Random 100 mg/dL (60-115); Lipase 15 U/L (8-78); Sodium 136 mmol/L (135-145); Total Protein 8.6 g/dL (6.5-8.0)
--- NOTE | 2024-10-01 16:36 | PC.NURSE ---
patient states that for the past 3-4 months he has been snorting fentanyl. has been attempting to self detox from this and has been having difficulties. used whatever he had left prior to arrival. states he has used suboxone in the past with positive results, is interested in potentially restarting this to detox from fentanyl. has not slept in the past 3 days, requesting something to help him get some sleep. states that his suicidal ideation is directly tied to his fentanyl abuse. provided with water for urine sample, labs obtained and sent.
[2024-10-01 16:38] LABS: Influenza A PCR NEGATIVE (Negative); Influenza B PCR NEGATIVE (Negative); Resp Syncy Virus RNA Qual PCR NEGATIVE (Negative); SARS COV2 PCR INHOUSE NEGATIVE (Negative)
[2024-10-01] MEDS: LORazepam 1 MG TABLET 2 MG PO ×2 (17:20→21:26)
[2024-10-01 17:35] LABS: Appearance Urine Clear; Color Urine Yellow; Glucose Urine UA Negative (Negative); Leukocyte Esterase Urine Negative (Negative); Nitrite Urine Negative (Negative); PH 6.5 (5.0-9.0); Urine Blood Negative (Negative); Urine Ketones Negative (Negative); Urine Protein Negative (Neg-Trace)
[2024-10-01 17:47] LABS: Amphetamine Screen Urine Not Detected (Not Detect); Barbiturates, Urine Not Detected (Not Detect); Benzodiazepines Screen Urine Not Detected (Not Detect); Buprenorphine Scr Not Detected (Not Detect); Cannabinoid Screen Urine Not Detected (Not Detect); Cocaine Screen Urine Not Detected (Not Detect); Fentanyl, urine POSITIVE (Not Detect); Methadone Screen, Urine Not Detected (Not Detect); Opiate Screen Urine Not Detected (Not Detect); Oxycodone Screen Urine Positive (Not Detect); Phencyclidine Screen Urine Not Detected (Not Detect)
[2024-10-01 19:17] VITALS: PULSE 80
--- NOTE | 2024-10-01 19:30 | PC.NURSE ---
patient appears to remain at rest presently respirations are even and unlabored patient appears in no distress.
--- NOTE | 2024-10-01 19:59 | PC.NURSE ---
patient appears to remain st rest presently respirations are even and unabored patient appears in no distress.
[2024-10-01 21:32] VITALS: BP 123/79; PULSE 72; RESP 16; TEMP 37.2; O2SAT 98
[2024-10-01] MEDS: Lithium Carbonate 300 MG CAPSULE 900 MG PO (22:42)
[2024-10-01] MEDS: Gabapentin 300 MG CAPSULE 600 MG PO (22:42)
[2024-10-01] MEDS: OLANZapine 10 MG TABLET PO (22:43)
[2024-10-02] MEDS: diphenhydrAMINE HCL 25 MG CAPSULE 50 MG PO (03:36)
[2024-10-02] MEDS: Ibuprofen 600 MG TABLET PO (04:31)
[2024-10-02 06:23] VITALS: RESP 12
[2024-10-02] MEDS: Gabapentin 300 MG CAPSULE 600 MG PO ×2 (09:16→21:16)
[2024-10-02] MEDS: Lithium Carbonate 300 MG CAPSULE PO (09:16)
[2024-10-02] MEDS: LORazepam 1 MG TABLET PO (10:01)
[2024-10-02 14:36] VITALS: BP 130/63; PULSE 76; RESP 14; TEMP 37.2; O2SAT 99
--- NOTE | 2024-10-02 16:17 | PHA.MEDREC ---
Addendum entered by Alethea Kuo RPh 10/02/24 16:26: Reviewed by pharmacist Original Note: Pharmacy Consult ? Medication Reconciliation Pharmacy has reviewed the medication reconciliation done by nursing. [facility] med list.
[2024-10-02] MEDS: LORazepam 1 MG TABLET 2 MG PO (17:57)
[2024-10-02 20:58] VITALS: BP 140/87; PULSE 85; RESP 18; TEMP 37.9; O2SAT 99
[2024-10-02] MEDS: Lithium Carbonate 300 MG CAPSULE 900 MG PO (21:15)
[2024-10-02] MEDS: OLANZapine 10 MG TABLET PO (21:16)
--- NOTE | 2024-10-02 22:20 | PC.NURSE ---
Patient restless, skin pwd, resp even and non labored, speaking in full, clear sentences. restless, reports he hasnt slept much since his arrival in the ED. calm and cooperative, able to make needs known. c/o intermittent n/v, headache, chills/sweats. patient and his mother have requested patient start on methadone or suboxone, physician aware.
--- NOTE | 2024-10-02 23:21 | MHC.EDTECH ---
this tech assumed care of pt @ 2300, at this time the pt was witnessed in his room in bed resting quietly
[2024-10-03 00:05] VITALS: PULSE 92
--- NOTE | 2024-10-03 00:10 | PC.NURSE ---
Pt cooperative although visibly anxious. He reports feeling anxious and has been noted to be restless both in the bed and out in the common area. MD Chapa made aware of his COWS score of 15.
[2024-10-03] MEDS: LORazepam 1 MG TABLET 2 MG PO (00:25)
[2024-10-03] MEDS: Nicotine Polacrilex 2 MG GUM BUCCAL (03:09)
--- NOTE | 2024-10-03 07:24 | PC.NURSE ---
Assumed care of patient at 0645, patient appears to be sleeping, respirations even and unlabored, no apparent distress noted. continue plan of care for dual dx bedsearch
[2024-10-03] MEDS: Lithium Carbonate 300 MG CAPSULE PO (08:12)
[2024-10-03] MEDS: Gabapentin 300 MG CAPSULE 600 MG PO (08:12)
--- NOTE | 2024-10-03 08:37 | PC.NURSE ---
Pt requesting to be discharged, stating he no longer feels like he is in withdrawal and does not feel suicidal anymore
--- NOTE | 2024-10-03 09:29 | PC.NURSE ---
Pt denies SI/HI/AH/VH. requesting to talk to someone about methadone. Guerline, solution lead at bedside at this time
--- NOTE | 2024-10-03 09:52 | MHC.RECOVRN ---
Met with pt in [facility], along with [address], after pt requested methadone initiation. Pt had been a dual diagnosis bedsearch, however, now denies SI/HI/AH/VH and would like to discharge. Pt sitting in bed, awake, alert, engages in conversation. Pt reports using pressed pills marketed as 30 mg oxycodone, 1 tab daily, [place], x 1 year. Pt reports he splits the pill into quarters and uses it throughout the day. Pt also reports alcohol use, 10 shots vodka daily, x 6 months. In regard to alcohol use, pt states I can take it or leave it. Pt reports he drinks after work. 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 Pt reports hx Suboxone approx 2.5 years ago. Reports he took the medication for 90 days but found he continued to have cravings. Pt is not interested in restarting Suboxone. Pt interested in methadone and being connected to [facility] in [place]. Pt reports he has transportation. Has never been to an [facility] in the past. Currently, pt reports withdrawal symptoms inclusing feeling hot/cold, vomiting, diarrhea, and diaphoresis. Pt appears restless. No rhinorrhea or piloerection noted. Pt denies other questions or concerns for t/w. Discussed with ED provider and pts RN, plan to administer 20 mg methadone and discharge the patient.
[2024-10-03] MEDS: methADONE HCl 20 MG/2 ML ORAL.CONC PO (10:47)
--- NOTE | 2024-10-03 11:13 | MHC.CARE ---
Patient reassessed by the CARE Team, updated disposition is discharge home. ED provider, Dr. Crowder updated and in agreement with plan.
--- NOTE | 2024-10-03 11:15 | MHC.RECOVRN ---
Pts referral sent to [facility].
[2024-10-03 11:32] VITALS: BP 108/69; PULSE 84; RESP 16; TEMP 36; O2SAT 97
== END 2024-10-03 11:38 | disposition home or self-care (01) ==
PROVIDERS: Physician Assistant Medical; Emergency Provider Internal Medicine; PCP Internal Medicine
DX: F11.20 Opioid dependence, uncomplicated (principal); R45.851 Suicidal ideations; R00.1 Bradycardia, unspecified; F33.1 Major depressive disorder, recurrent, moderate; Z03.818 Encounter for observation for suspected exposure to other biological agents ruled out; Z79.899 Other long term (current) drug therapy; Z51.81 Encounter for therapeutic drug level monitoring
CPT/HCPCS: 0241U; 36415; 80053; 80143; 80178; 80307; 81003; 82550; 83690; 83735; 85025; 93005; 99285; S9485

== ENCOUNTER → 2024-10-01 15:24 | Outpatient (BNV) | payer OTHER, SELFPAY | PROVIDERS: Emergency Provider Internal Medicine; PCP Internal Medicine; Visit Provider Internal Medicine Cardiovascular Disease | DX: R00.1 Bradycardia, unspecified (principal) | CPT/HCPCS: 93010 ==

== ENCOUNTER 2025-01-14 09:32 | Emergency (ER) | payer OTHER, SELFPAY ==
--- NOTE | ~2025-01-14 | CT_ITS ---
CLINICAL HISTORY: right sided facial swelling CT maxillofacial with contrast Comparison: None Findings: No acute fractures. Temporomandibular joints are intact. There is multifocal dental caries and periodontal abscess formation. There is a cortical defect overlying a periodontal abscess of the right 2nd maxillary premolar. There is severe and extensive edema of the overlying soft tissues. There is no soft tissue abscess. There is mucosal thickening within the right maxillary sinus. Orbits normal. Visualized intracranial contents are within normal limits. No foreign bodies. There is mild lymphadenopathy within the visualized soft tissues. IMPRESSION: 1. Multifocal dental caries and periodontal abscess formation. 2. There is a cortical defect overlying a periodontal abscess of the right 2nd maxillary premolar with severe inflammation of adjacent soft tissues. 3. There is mild lymphadenopathy, compatible with an inflammatory process. This document has been electronically signed by: Miriam Magaña MD on 01/14/2025 13:51:03
[2025-01-14 09:59] VITALS: BP 148/102; PULSE 94; RESP 16; TEMP 37.2; O2SAT 98; BMI 29.1
[2025-01-14] MEDS: Acetaminophen 325 MG TABLET 975 MG PO (10:05)
[2025-01-14 10:40] LABS: MANUAL DIFF FLAG NO
[2025-01-14 10:41] LABS: Basophils Percent Auto 0.2 % (0-2); Eosinophils Absolute Auto 0.1 X10*3/uL (0.0-0.4); Eosinophils Percent Auto 0.8 % (0-4); Hematocrit 41.7 % (42.0-52.0); Hemoglobin 14.6 g/dl (14.0-18.0); Imm Gran Abs Auto 0.03 X10*3/uL (0.00-0.03); Imm Gran Pct Auto 0.3 % (0.0-0.4); Lymphocytes Absolute Auto 2.2 X10*3/uL (1.2-4.9); Lymphocytes Percent Auto 22.4 % (20-40); Mean Corpuscular Volume 94.3 fL (80.0-98.0); Mean Platelet Volume 8.7 fL (9.4-12.4); Monocytes Absolute Auto 0.8 X10*3/uL (0.1-1.2); Monocytes Percent Auto 7.6 % (2-11); Neutrophils Absolute Auto 6.8 x10*3/uL (2.0-8.3); Neutrophils Percent Auto 68.7 % (45-73); Platelet Count 481 X10*3/uL (160-400); Red Blood Count 4.42 X10*6/uL (4.60-5.80); Red Cell Distribution Width 12.2 % (11.0-16.0); White Blood Count 9.9 X10*3/uL (4.8-10.8)
[2025-01-14 11:01] LABS: Anion Gap 13 (12-20); Blood Urea Nitrogen 13 mg/dL (9-16); Calcium 9.8 mg/dL (8.4-10.2); Carbon Dioxide 26 mmol/L (22-29); Chloride 104 mmol/L (96-108); Creatinine Clr Calc Pharmacy 125.1; Estimated Glomerular Filt Rate > 60; Glucose Random 109 mg/dL (60-115); Potassium 4.1 mmol/L (3.3-5.1); Sodium 139 mmol/L (135-145)
--- NOTE | 2025-01-14 11:39 | ED.DENTAL ---
HPI - Dental/Oral General Chief complaint: Dental/Oral Stated complaint: facial swelling Time Seen by Provider: 01/14/25 11:51 Source: patient and RN notes reviewed Mode of arrival: ambulatory Limitations: no limitations History of Present Illness ED Provider: Lyndsay Ivey PA-C HPI Narrative: This is a 34-year-old male who presents emergency department for evaluation of right-sided facial swelling since this morning. Patient states that yesterday he developed right upper dental pain around 7:00 p.m.. He states that he woke up at midnight after falling asleep and noticed that he had increased swelling to the right side of his face. Patient reports that he has had known dental problems, does not have a dentist due to insurance difficulties, last seen last summer. History of dental infections. Denies any known fevers or chills. He is able to swallow. No shortness of breath. No other complaints or concerns at this time. MD Complaint: tooth pain Onset (ago): day(s) Duration: constant Severity: moderate Relieving factors: nothing Exacerbating factors: nothing Associated symptoms: gum swelling Treatment prior to arrival: none Related Data Home Medications ?Medication ?Instructions ?Recorded ?Confirmed lithium carbonate 600 mg capsule 300 mg PO DAILY 01/01/21 10/01/24 lithium carbonate 600 mg capsule 900 mg PO BEDTIME 01/01/21 10/01/24 gabapentin 300 mg capsule 600 mg PO BID 10/01/24 10/01/24 olanzapine 10 mg tablet 10 mg PO BEDTIME 10/01/24 10/01/24 Previous Rx's ?Medication ?Instructions ?Recorded acetaminophen 500 mg tablet 1,000 mg (2 x 500 mg) PO Q8H PRN 01/14/25 (Tylenol Extra Strength) pain #30 tabs amoxicillin 875 mg-potassium 1 tab PO BID 10 days #19 tabs 01/14/25 clavulanate 125 mg tablet ibuprofen 600 mg tablet 600 mg PO Q6H PRN pain #30 tabs 01/14/25 Allergies Allergy/AdvReac Type Severity Reaction Status Date / Time tree and shrub pollen [TREES] Allergy Unknown RASH FROM Verified 01/14/25 10:03 PINE TREES metoclopramide [Reglan] AdvReac Unknown Anxiety Verified 01/14/25 10:03 diphenhydramine AdvReac Nausea Verified 01/14/25 10:03 melatonin AdvReac Itching Verified 01/14/25 10:03 SEAFOOD Allergy Unknown VOMITING Uncoded 01/14/25 10:03 Review of Systems Review of Systems: Constitutional: No Weight loss, No Fever, No Chills, No Night Sweats, No Fatigue, No Malaise ENT/Mouth: No Hearing loss, No Ear Pain, No Nasal Congestion, No Sinus Pain, No Hoarseness, No sore throat, No Rhinorrhea, No Swallowing Difficulty Eyes: No Eye Pain, No Swelling, No Redness, No Foreign Body, No Discharge, No Vision Changes Cardiovascular: No Chest Pain, No SOB, No Dyspnea on Exertion, No Orthopnea, No Edema, No Palpitations Respiratory: No Cough, No Sputum, No Wheezing, No Smoke Exposure, No Dyspnea Gastrointestinal: No Nausea, No Vomiting, No Diarrhea, No Constipation, No Abdominal pain, No Hematochezia, No Melena Genitourinary: No irregular bleeding, No Dysuria, No Urinary Frequency, No Hematuria, No Urinary Incontinence/retention, No Urgency, No Flank Pain, No Urinary Flow Changes, No Hesitancy Musculoskeletal: No joint pain, No Myalgias, No Joint Swelling Skin: No Skin Lesions, No rash Neuro: No Weakness, No Numbness, No Paresthesias, No Loss of Consciousness, No Dizziness, No Headache Psych: No Anxiety/Panic, No Depression, No SI/HI/AH/VH, No Social Issues, Heme/Lymph: No Bruising, No Bleeding,No Lymphadenopathy Endocrine: No Polyuria, No Polydipsia, No Temperature Intolerance Yes all other systems are reviewed and are negative Constitutional: Constitutional: Reports as per [facility] Past Medical History Medical History Celiac disease Surgical History History of esophagogastroduodenoscopy (EGD) Family History Family History Father Family history of hypertension Heart problem Mother Family history- stomach cancer Family history of lung cancer Maternal Uncle No problems noted. Paternal Grandfather Heart problem Social History Social History Household Members: Significant Other and Other Alcohol intake: former Year quit: 2 Substance Use Type: Marijuana Advance Directives: No Advance Directives Information Provided: Yes Current occupational status: unemployed Physical Exam Vital Signs: Vital Signs: Last Vital Signs Temp 98.4 F 01/14/25 14:26 Pulse 75 01/14/25 14:26 Resp 16 01/14/25 14:26 BP 132/84 01/14/25 14:26 Pulse Ox 99 01/14/25 14:26 O2 Del Method Room Air 01/14/25 14:26 BMI result Body Mass Index 29.1 Const: General: cooperative, comfortable and no acute distress Orientation/consciousness: patient oriented x3 Limitations: no limitations HEENT: Other: Moderate right-sided facial swelling noted, with diffuse poor dentition throughout, upper gumline appears to be erythematous, no fluctuance. Tenderness palpation along the mandible. No obvious dental abscess appreciated on examination. Able to open and close jaw. No trismus, drooling, or dysphonia. Airway is widely patent. Head: Yes normal to inspection, Yes normocephalic and Yes atraumatic Ears: hearing grossly normal bilaterally General nose exam: Normal external nose present Face and sinus: Yes normal facial exam Mouth: Normal oral and palatal mucosa present, oropharynx normal and moist mucous membranes Throat: Yes posterior oropharynx normal Eyes: General: appearance normal, both eyes and all related structures Eyelids: Yes eyelids normal Conjunctivae: conjunctivae normal Sclerae: sclerae normal Pupils: Equal, round and reactive pupils present EOM: EOMs intact bilaterally Neck: Neck: Yes normal visual inspection, Yes full ROM and Yes no lymphadenopathy Lymphatic: no lymphadenopathy noted Chest: Chest palpation & inspection: normal inspection of the chest Resp: Effort & Inspection: normal respiratory effort and able to speak in complete sentences Auscultation: clear to auscultation bilaterally, no crackles, no rales, no rhonchi and no wheezes Cardio: Rate: regular rate Rhythm: regular rhythm Heart sounds: S1 normal heart sound present and S2 normal heart sound present GI: Inspection: Yes normal to inspection Skin: General skin exam: no rashes or lesions noted Trauma: no lacerations or abrasions Wounds: no wounds Neuro: General: patient oriented x3 and moves all extremities Cranial nerves: Yes Equal, round and reactive pupils present Extrem: General: Yes normal to inspection Right upper extremity: normal to inspection Left upper extremity: normal to inspection Right lower extremity: normal to inspection Left lower extremity: normal to inspection Medications Administered Discontinued Medications Generic Name Dose Route Start Last Admin Trade Name Freq PRN Reason Stop Dose Admin Acetaminophen 975 mg 01/14/25 10:04 01/14/25 10:05 Acetaminophen 325 Mg Tablet PO 01/14/25 10:05 975 mg ONCE ONE Administration Amoxicillin/Clavulanate Potassium 875 mg 01/14/25 11:47 01/14/25 11:55 Amoxicillin/Potassium Clav 875 Mg Tablet PO 01/14/25 11:48 875 mg ONCE ONE Administration Sodium Chloride 1,000 mls @ 999 mls/hr 01/14/25 11:51 01/14/25 13:00 Ns IV 01/14/25 12:51 Infused .Q1H1M ONE Infusion Iohexol 100 ml 01/14/25 12:03 01/14/25 12:03 Iohexol 350 Mg/Ml 100 Ml Infus..Btl IV 01/14/25 12:04 85 ml ONCE ONE Administration Medical Decision Making Medical Decision Making MDM Narrative: This is a 34-year-old male who presents emergency department with complaints of right sided dental pain which started last night. On arrival, patient mildly hypertensive at 148/102 all other vital signs within normal limits. He is speaking full sentences under no acute distress. He has moderate right-sided facial swelling with tenderness palpation. Given poor dentition, with moderate edematous, and erythematous gumline with no appreciable abscess, will obtain labs, and facial CT to rule out any worsening abscess. Differential diagnoses include dental abscess, dental caries, dental fracture, dental decay, osteomyelitis. Course: Labs were obtained, he has no leukocytosis, stable H&H, chemistry with no significant electrolyte derangement. Cat scan revealing multifocal dental caries in perio dental abscess formation, there is a cortical defect overlying the periodontal abscess of the right 2nd maxillary premolar with severe inflammation of the adjacent soft tissues. There is mild lymphadenopathy. I discussed this finding with my attending physician, Dr. Aguirre, who came and assessed patient. Will discharge on Augmentin, follow-up with dentist as soon as possible. He understands and agrees with plan. Given strict return precautions. Patient stable for discharge. Differential Diagnosis Differential Diagnoses: The differential diagnosis associated with the presentation includes See above Lab Data [facility] Lab Attestation statement: I reviewed the patient's lab results. See MDM and course 05/04/25 10:29 01/14/25 10:29 Labs: Lab Results 01/14/25 Range/Units 10:29 WBC 9.9 (4.8-10.8) X10*3/uL RBC 4.42 L (4.60-5.80) X10*6/uL Hgb 14.6 (14.0-18.0) g/dl Hct 41.7 L (42.0-52.0) % MCV 94.3 (80.0-98.0) fL MCH 33.0 (27.0-33.0) pg MCHC 35.0 (31.0-36.0) g/dl RDW 12.2 (11.0-16.0) % Plt Count 481 H (160-400) X10*3/uL MPV 8.7 L (9.4-12.4) fL Immature Gran % (Auto) 0.3 (0.0-0.4) % Neut % (Auto) 68.7 (45-73) % Lymph % (Auto) 22.4 (20-40) % [place] % (Auto) 7.6 (2-11) % Eos % (Auto) 0.8 (0-4) % Baso % (Auto) 0.2 (0-2) % Lymph # (Auto) 2.2 (1.2-4.9) X10*3/uL [place] # (Auto) 0.8 (0.1-1.2) X10*3/uL Eos # (Auto) 0.1 (0.0-0.4) X10*3/uL Baso # (Auto) 0.0 (0.0-0.2) X10*3/uL Abs Immat Gran (auto) 0.03 (0.00-0.03) X10*3/uL Absolute Neuts (auto) 6.8 (2.0-8.3) x10*3/uL Absolute Nucleated RBC 0.000 (0.0-0.012) X10*3/uL Nucleated RBC % (auto) 0.0 (0.0-0.2) /100WBC Sodium 139 (135-145) mmol/L Potassium 4.1 (3.3-5.1) mmol/L Chloride 104 (96-108) mmol/L Carbon Dioxide 26 (22-29) mmol/L Anion Gap 13 (12-20) BUN 13 (9-16) mg/dL Creatinine 0.92 (0.5-1.4) mg/dL Estim Creat Clear Calc 125.1 Estimated GFR > 60 Random Glucose 109 (60-115) mg/dL Calcium 9.8 (8.4-10.2) mg/dL Radiology Impression Discussion of test interpretation with radiology: I have reviewed the radiologist's reading. Radiologist Impression: Findings: No acute fractures. Temporomandibular joints are intact. There is multifocal dental caries and periodontal abscess formation. There is a cortical defect overlying a periodontal abscess of the right 2nd maxillary premolar. There is severe and extensive edema of the overlying soft tissues. There is no soft tissue abscess. There is mucosal thickening within the right maxillary sinus. Orbits normal. Visualized intracranial contents are within normal limits. No foreign bodies. There is mild lymphadenopathy within the visualized soft tissues. IMPRESSION: 1. Multifocal dental caries and periodontal abscess formation. 2. There is a cortical defect overlying a periodontal abscess of the right 2nd maxillary premolar with severe inflammation of adjacent soft tissues. 3. There is mild lymphadenopathy, compatible with an inflammatory process. This document has been electronically signed by: Miriam Magaña MD on 01/14/2025 13:51:03 Dictated By: Miriam Magaña MD External Record Review External record reviewed: Outside ED record Discharge Plan Discharge Clinical Impression: Dental abscess, Dental decay Patient Disposition: Home, Self-Care Instructions: Dental Abscess (ED) Additional Instructions: You were seen in the emergency department due to dental pain. Your CT scan shows multiple dental caries and an abscess formation, there is no appreciable abscess that we can drain today. Please take prescribed antibiotic as directed, finish the entire course even if your symptoms improve. You already received your 1st dose of the Augmentin this morning, please take the next dose this evening. Alternate between ibuprofen and or Tylenol as needed for pain and symptoms. You need to follow-up with a dentist, call tomorrow to make an appointment. If any new or worsening symptom her including but not limited to worsening swelling, high fevers, difficulty swallowing, shortness for breath, please seek emergent care. Your CT scan findings: (Please show dentist for appropriate followup) Findings: No acute fractures. Temporomandibular joints are intact. There is multifocal dental caries and periodontal abscess formation. There is a cortical defect overlying a periodontal abscess of the right 2nd maxillary premolar. There is severe and extensive edema of the overlying soft tissues. There is no soft tissue abscess. There is mucosal thickening within the right maxillary sinus. Orbits normal. Visualized intracranial contents are within normal limits. No foreign bodies. There is mild lymphadenopathy within the visualized soft tissues. IMPRESSION: 1. Multifocal dental caries and periodontal abscess formation. 2. There is a cortical defect overlying a periodontal abscess of the right 2nd maxillary premolar with severe inflammation of adjacent soft tissues. 3. There is mild lymphadenopathy, compatible with an inflammatory process. Prescriptions: New ibuprofen 600 mg tablet 600 mg PO Q6H PRN (Reason: pain) Qty: 30 0RF acetaminophen [Tylenol Extra Strength] 500 mg tablet 1,000 mg PO Q8H PRN (Reason: pain) Qty: 30 0RF amoxicillin-pot clavulanate 875-125 mg tablet 1 tab PO BID 10 Days Qty: 19 0RF No Action olanzapine 10 mg tablet 10 mg PO BEDTIME gabapentin 300 mg capsule 600 mg PO BID lithium carbonate 600 mg capsule 300 mg PO DAILY lithium carbonate 600 mg capsule 900 mg PO BEDTIME Stand Alone Forms: Work/School Release Interventions: ED Discharge Assessment Last Done: 01/14/25 14:26 Discharge Date/Time: 01/14/25 14:26 Print Language: [place]
[2025-01-14 11:40] VITALS: BP 142/104; PULSE 86; RESP 18; TEMP 37.2; O2SAT 100
[2025-01-14 11:41] VITALS: TEMP 37.1
[2025-01-14] MEDS: Amoxicillin/Potassium Clav 875 MG TABLET PO (11:55)
[2025-01-14] MEDS: 0.9 % Sodium Chloride 1,000 ML 999 ML IV (11:59)
[2025-01-14] MEDS: iohexoL 350 MG/ML 100 ML INFUS..BTL IV (12:03)
[2025-01-14 12:52] VITALS: BP 132/84; PULSE 75; RESP 16; O2SAT 99
[2025-01-14 14:26] VITALS: BP 132/84; PULSE 75; RESP 16; TEMP 36.9; O2SAT 99
== END 2025-01-14 14:26 | disposition home or self-care (01) ==
PROVIDERS: Emergency Provider Emergency Medicine; PCP Internal Medicine
DX: K04.7 Periapical abscess without sinus (principal); K02.9 Dental caries, unspecified; Z79.899 Other long term (current) drug therapy
CPT/HCPCS: 36415; 70487; 80048; 85025; 87040; 96360; 99284; Q9967

== ENCOUNTER → 2025-01-14 11:41 | Outpatient (BNV) | payer OTHER, SELFPAY | PROVIDERS: Emergency Provider Emergency Medicine; PCP Internal Medicine; Visit Provider Radiology Diagnostic Radiology | DX: K02.9 Dental caries, unspecified (principal); K05.219 Aggressive periodontitis, localized, unspecified severity | CPT/HCPCS: 70487 ==